=== PATIENT | female | born 1970 | race Caucasian/White ===

== ENCOUNTER → 2018-10-04 | Outpatient (REF) | payer OTHER ==
[~2018-10-04] MED LIST: ACE500 PO; ALP25 PO; CEP500 PO; CIPR-326 PO; CITA-128 PO; DIA5 PO; ETHY1TAB10 PO; FLAX100027 PO; IBU600 PO; LANS15CA38 PO; LOR5/325 PO; MET500 PO; METO25TA89 PO; MULT1CAP41 PO; NAP500 PO; PHENA200 PO; SIM10 PO; ZOLP-350 PO; ZOLP12.545 PO
[2018-10-04 13:46] LABS: LDL CHOLESTEROL 149 mg/dl
== END ==
LOC: ZZSTITCHES 13:18
PROVIDERS: ATTEND Physician Assistant
DX: E55.9 Vitamin D deficiency, unspecified (principal); E78.49 Other hyperlipidemia; I10 Essential (primary) hypertension; E03.9 Hypothyroidism, unspecified; R23.0 Cyanosis; E66.9 Obesity, unspecified
CPT/HCPCS: 82040; 82247; 82306; 82310; 82374; 82435; 82465; 82565; 82947; 83718; 84075; 84132; 84155; 84295; 84443; 84450; 84460; 84478; 84520